=== PATIENT | male | born 1985 | race Caucasian/White ===

== ENCOUNTER 2017-01-10 15:15 | Emergency (ER) | payer OTHER ==
[~2017-01-10] VITALS: Ht 182.9 cm; Wt 72.7 kg
[2017-01-10 15:17] VITALS: BP 124/75; PULSE 140; RESP 20; O2SAT 95
[2017-01-10 15:20] VITALS: PULSE 122; RESP 19; O2SAT 95
[2017-01-10 15:28] LABS: BASOPHILS % (AUTO) 0.6 % (0-3); EOSINOPHILS % (AUTO) 5.6 % (0-5); Mean Corpuscular Hemoglobin 29.6 pg (27.0-35.0); Mean Corpuscular Volume 88.7 fL (81-100); NEUTROPHILS % (AUTO) 34.3 % (40-74); Platelet Count 231 bil/L (150-400)
[2017-01-10] MEDS ORDERED: 0.9% Sodium Chloride 1,000 ML IV ONE ×2 (15:28→16:50)
[2017-01-10] MEDS ORDERED: Etomidate 2 mg/mL 20 mL Inj IV ONE (15:30)
--- NOTE | 2017-01-10 15:35 | ED.REPORT ---
HPI-General Illness Date of Service January 10, 2017 ED Provider: Jagjit Purdy MD Patient is a healthy 31 year old male who presents to the ED after being referred by urgent care complaining of heart racing onset this morning upon waking. Associated symptoms include chest tightness, feeling "jittery", and SOB. He denies vomiting, diarrhea, or any other symptoms. Patient routinely smokes heroin user but denies IV drug use. He last smoked heroin at 1045 this morning. He has no cardiac history. He denies any recent illnesses. He denies any illicit drug use other than heroin. Nursing Notes Stated Complaint: RAPID HEART RATE Chief Complaint: Dysrhythmia/Cardiac Nursing Notes Reviewed: Yes Allergies: Coded Allergies: No Known Allergies (Unverified , 01/10/17) No Active Prescriptions or Reported Meds General Time Seen by MD: 15:28 Chief Complaint Other (Irregular heartbeat ) Hx Obtained From: Patient Arrived By: Walk-in Sudden in Onset?: Yes Onset Occurred: 5 - 8 hours ago Symptom Duration: Since onset Past Medical History Past Medical History denies Past Surgical History denies Family History noncontributory Smoking History Unknown if Ever Smoker Social History Smokes heroin (8-10 years) Denies IV drug use Drug Use: THC, Other (Heroin ) Other Social History: Good social support, Local resident Ambulatory Status Independent Review of Systems +"jittery", rapid heart rate Full Review of Systems Respiratory: Reports: Shortness of breath Cardiovascular: Reports: Chest pain (tightness ) GI: Denies: Diarrhea, Nausea, Vomiting Complete sys rev & neg: except as marked. Physical Exam Vital Signs Vital Signs Date Time Temp Pulse Resp B/P Pulse Ox O2 Delivery O2 Flow Rate FiO2 01/10/17 19:14 84 17 132/81 98 Room Air 01/10/17 18:05 73 16 129/87 97 Room Air 01/10/17 15:49 90 122/74 01/10/17 15:20 122 19 95 Room Air 01/10/17 15:17 36.7 140 20 124/75 95 Room Air Initial VS: Reviewed, Vital signs abnormal General/Constitutional: Well-developed, Well-nourished Head / Eyes: Atraumatic, Normocephalic Neck: Full range of motion Respiratory: Breath sounds normal, Clear to auscultation, No respiratory distress Abdomen / GI: Soft, Non-tender, No guarding, No rebound, No distention Skin: Warm, Dry Neurologic: Alert, Oriented, Nonfocal Psychiatric: Mood/affect normal, Behavior normal, Normal thought content Mouth: Positive: Mucous membranes dry Cardiovascular: Heart sounds NL, No gallop, No murmurs, No rubs Heart Rate / Rhythm: Positive: Tachycardia Lower Extremity / Pelvis / MS: No swelling, Non-tender Neurologic: Oriented X3, Speech NL, CN II - XII intact Interpretation & Diagnostics Lab Results Interpretation Result Diagram: 01/10/17 1510 01/10/17 1510 Test 01/10/17 15:10 White Blood Count 5.2th/mm3 (3.8-10.1) Red Blood Count 5.40mil/mm3 (4.40-5.80) Hemoglobin 16.0g/dL (13.8-17.2) Hematocrit 47.9% (41.0-50.0) Mean Corpuscular Volume 88.7fL (81-100) Mean Corpuscular Hemoglobin 29.6pg (27.0-35.0) Mean Corpuscular Hemoglobin Concent 33.4% (32.0-37.0) Red Cell Distribution Width 12.2% (12.3-15.4) Platelet Count 231bil/L (150-400) Neutrophils (%) (Auto) 34.3% (40-74) Lymphocytes (%) (Auto) 47.3% (14-46) Monocytes (%) (Auto) 12.0% (4-12) Eosinophils (%) (Auto) 5.6% (0-5) Basophils (%) (Auto) 0.6% (0-3) Sodium Level 138mEq/L (134-144) Potassium Level 3.4mEq/L (3.5-5.2) Chloride Level 98mEq/L (97-108) Carbon Dioxide Level 23mmol/L (18-29) Blood Urea Nitrogen 10mg/dL (6-20) Creatinine 0.75mg/dL (0.76-1.27) Estimat Glomerular Filtration Rate 130mL/min (>59) Glucose Level 124mg/dL (60-99) Calcium Level 9.5mg/dL (8.5-10.1) Magnesium Level 2.0mg/dL (1.6-2.6) Total Bilirubin 0.6mg/dL (0.0-1.2) Aspartate Amino Transf (AST/SGOT) 17U/L (0-50) Alanine Aminotransferase (ALT/SGPT) 12U/L (0-44) Alkaline Phosphatase 67U/L (25-150) Troponin T < 0.010ug/L (0.0-0.011) Total Protein 8.7g/dL (6.4-8.4) Albumin 5.3g/dL (3.4-5.0) ECG Interpretation ECG Interpretation: afib with RVR rate 112 normal axis and intervals no ST segment changes no T wave abnormalities Time: 15:23 Interpreted by: ED physician ECG Interpretation: sinus rate 86 normal axis and interval no ST, T changes no longer in afib Time: 18:02 Interpreted by: ED physician X-Ray Chest Interpretation Chest Xray Interpretation: IMPRESSION: Large lung volumes, likely related to body habitus and relatively aggressive inspiratory effort. A spontaneous pneumothorax is not found. No other source of chest pain is seen. Dictated by: Dino Headley M.D. on 01/10/2017 at 16:18 Approved by: Dino Headley M.D. on 01/10/2017 at 16:19 View: Portable, 1 view Interpretation / Wet Read by: Interpret - Radiologist Procedures Electrical Cardioversion Time: 17:48 Procedure Performed by: ED physician Indication: Atrial fibrillation Consent / Setup / Site Prep: Informed consent provided, Consent from patient , Time-out performed, Placed on oxygen, Placed on pulse oximeter, Place on document control specialist, Hand hygiene observed Procedural Sedation/Analgesia: Sedation: Etomidate Joules: 150 Procedure Successful: Yes Post-Procedure Rhythm: Normal sinus rhythm Post-Procedure / Complications: No complications, Condition improved, Tolerated procedure well, Patient stable Proced Mod Sedation/Analgesia Time: 17:45 Procedure Performed by: ED physician Consent / Setup: Informed consent provided, Consent from patient, Time-out performed, Hand hygiene observed Indication: Other (Cardioversion ) Preparation: patient carrier applied, Pulse oximeter applied, Constant attendance, IV access established, Eval last meal time, Supplemental oxygen, Procedure explained VS Prior to Procedure: O2 saturation normal, Blood pressure normal, Respiratory rate normal Airway Exam: Normal facial anatomy, Normal anatomy CVS/Resp Exam: Normal breath sounds Sedation: Sedation: Other (Etomidate ) ASA Classification: 1 normal healthy patient Response During Procedure: Handled secretions adeq, Maintained airway well, Oxygenation stable, Sedation appropriate, Vital signs stable Complications During/After: None Reversal: None required Mental Status After Procedure: Alert, Oriented X3, Normal per age, At patient' s baseline Post-Procedure: Alert prior to discharge Attestation: I performed procedure Re-Eval/Medical Decision Med Decision/Clinical Course Patient is a healthy 31 year old male who presents to the ED after being referred by urgent care complaining of heart racing onset this morning upon waking. Associated symptoms include chest tightness, feeling "jittery", and SOB. He denies vomiting, diarrhea, or any other symptoms. Patient routinely smokes heroin user but denies IV drug use. He last smoked heroin at 1045 this morning. He has no cardiac history. He denies any recent illnesses. He denies any illicit drug use other than heroin. Upon arrival the patient is tachycardic in the 150s to 160s. EKG was obtained as above and demonstrated atrial fibrillation with rapid ventricular response. Laboratory studies including CBC, CMP and troponin which were unremarkable. CXR: Obtained, reviewed and interpreted by myself shows no evidence of infiltrates, effusions or pneumothorax. Cardiac and mediastinal silhouette normal. No bony or soft tissue abnormalities. Patient was treated with a 2 L saline bolus, while this somewhat improved his heart rate he remained in atrial fibrillation with rapid ventricular response. He is able to pinpoint that he experienced all of these symptoms when he woke up this morning and he did not have them when he went to bed. Given that he has been in atrial fibrillation for less than 24 hours he is a candidate for electrical cardioversion. Patient consented and was sedated with 10 mg of IV etomidate. I performed synchronized cardioversion as documented above using 150 J. He was easily converted back to sinus rhythm and tolerated the procedure well. Repeat EKG thereafter demonstrated normal sinus rhythm without any conduction abnormalities or ischemic changes. The patient has been referred to cardiology and will follow up on an outpatient basis. At this time I feel that he is appropriate for discharge home. I have counseled him to stop smoking heroin and he was provided with resources to seek help. Prior to discharge follow-up and return precautions were reviewed in detail with the patient who verbalized understanding and agreement with the plan. The patient was discharged in stable condition. Time of Eval: 18:56 Patient Status: Condition resolved Re-Evaluation/Progress Note: Discussed plan for discharge. Patient understands and agrees with plan. All questions addressed at this time. Counseled Regarding: Diagnosis, Lab results, Need for follow-up, When/why to return to ED Discharge & Departure Primary Impression: Atrial fibrillation with RVR Additional Impressions: Heroin abuse Lightheadedness Chest tightness Disposition: Home Discharge Condition All VS Reviewed: Yes Condition: Improved Additional Instructions: Thank you for seeking care at the emergency room. You were seen today because you were in a heart rhythm called atrial fibrillation with rapid ventricular response. We performed electrical cardioversion and you are now back in a normal heart rhythm. Our primary goal today in the ED was to evaluate you for any life-threatening conditions. Your evaluation was reassuring. Please call the chronic care nurse to make a follow-up appointment. I also recommend that you stop using heroin. Please follow up with the resources that were provided. You should return to the ED immediately if you develop recurrent symptoms, fevers, vomiting, cough, shortness of breath, chest pain, lightheadedness, weakness or any other concerning signs or symptoms. Thank you for letting us partake in your care today. Referrals: Asia Elder (PCP) Edouard Benites MD Scribe Attestation Portions of this note were transcribed by Kang Barnard. I, Dr. Purdy personally performed the history, physical exam and medical decision-making; I reviewed and confirmed the accuracy of the information in the transcribed note. Signed by: Kang Barnard 01/10/17, 1917 copies to: Asia Elder Beck O MD January 10, 2017 15:35 KANG BARNARD January 10, 2017 17:50
[2017-01-10 15:49] VITALS: BP 122/74; PULSE 90
[2017-01-10 16:10] LABS: TROPONIN T < 0.010 ug/L (0.0-0.011)
--- NOTE | 2017-01-10 16:20 | DRSVH ---
PROCEDURE: X-RAY CHEST ONE VIEW, PORTABLE ([id number]) INDICATIONS: cp TECHNIQUE: One view of the chest was acquired. COMPARISON: [facility], , CHEST 2VW, 09/02/2014, 11:01. [facility], , CHEST 2VW, 01/07/2013, 15:28. FINDINGS: Surgical changes and devices: None. Lungs and pleura: No pleural effusions or pneumothorax. Lungs are clear. Mediastinum: Mediastinal contours appear normal. Heart size is normal. Bones and chest wall: No suspicious bony lesions. Overlying soft tissues appear unremarkable. IMPRESSION: Large lung volumes, likely related to body habitus and relatively aggressive inspiratory effort. A spontaneous pneumothorax is not found. No other source of chest pain is seen. Dictated by: Dino Headley M.D. on 01/10/2017 at 16:18 Approved by: Dino Headley M.D. on 01/10/2017 at 16:19
[2017-01-10 18:05] VITALS: BP 129/87; PULSE 73; RESP 16; O2SAT 97
[2017-01-10 19:14] VITALS: BP 132/81; PULSE 84; RESP 17; O2SAT 98
== END 2017-01-10 19:15 | disposition home or self-care (01) ==
LOC: SED 15:15
DX: I48.91 Unspecified atrial fibrillation (principal); F11.20 Opioid dependence, uncomplicated
CPT/HCPCS: 36415; 71010; 80053; 83735; 84484; 85025; 92960; 93005; 94799; 99291; 99292; J7030